=== PATIENT | female | born 1985 | race Caucasian/White ===

== ENCOUNTER 2016-10-09 14:39 | Outpatient (CLI) | payer OTHER | END 2016-10-09 14:40 | disposition home or self-care (01) | LOC: MADLABBHPM 14:39 | PROVIDERS: ATTEND Family Medicine | DX: S91.102A Unspecified open wound of left great toe without damage to nail, initial encounter (principal) | CPT/HCPCS: 36415; 87070; 87077; 87186; 87205 ==

== ENCOUNTER 2019-02-04 13:54 | Outpatient (CLI) | payer OTHER ==
--- NOTE | 2019-02-04 14:26 | RAD ---
EXAM: 2 views of the abdomen HISTORY: Diarrhea for 2 months COMPARISON: None FINDINGS: Single view of the abdomen shows a nonspecific, nonobstructive bowel gas pattern. No free a ir or air-fluid levels are seen on upright examination. No suspicious calcifications are seen. The bones are unremarkable. A nonspecific catheter projects over the lower abdomen. IMPRESSION: No evidence of bowel obstruction.
== END 2019-02-04 13:55 | disposition home or self-care (01) ==
LOC: MADRAD 13:54
PROVIDERS: ATTEND Physician Assistant Medical
DX: K52.9 Noninfective gastroenteritis and colitis, unspecified (principal)
CPT/HCPCS: 74019